=== PATIENT | female | born 1945 | race Caucasian/White ===

== ENCOUNTER 2016-07-26 19:01 | Emergency (ER) | payer MEDICARE ==
[~2016-07-26] VITALS: Ht 165.1 cm; Wt 93.3 kg
[2016-07-26 19:08] VITALS: BP 131/72
[2016-07-26] MEDS ORDERED: DEXAMETHASONE 4 MG TABLET ONE (20:27)
[2016-07-26] MEDS ORDERED: DEXAMETHASONE 4 MG TABLET PO ONE (20:30)
[2016-07-26] MEDS ORDERED: LEVO50TA PO (20:32)
== END 2016-07-26 20:42 | disposition home or self-care (01) ==
LOC: ED 20:36
DX: M75.52 Bursitis of left shoulder (principal); E03.9 Hypothyroidism, unspecified
CPT/HCPCS: 72050; 93005; 99284

== ENCOUNTER 2016-11-15 17:39 | Emergency (ER) | payer MEDICARE ==
[~2016-11-15] VITALS: Ht 165.1 cm; Wt 91.5 kg
[~2016-11-15 17:39] MED LIST: LEVO50TA PO
[2016-11-15 17:40] VITALS: BP 141/73
== END 2016-11-15 19:33 | disposition home or self-care (01) ==
LOC: ED 18:20
DX: S06.0X0A Concussion without loss of consciousness, initial encounter (principal); M25.552 Pain in left hip; M25.522 Pain in left elbow; E03.9 Hypothyroidism, unspecified; W10.9XXA Fall (on) (from) unspecified stairs and steps, initial encounter; Y93.89 Activity, other specified; Y92.009 Unspecified place in unspecified non-institutional (private) residence as the place of occurrence of the external cause; Y99.9 Unspecified external cause status
CPT/HCPCS: 70450; 99284

== ENCOUNTER → 2016-12-10 | Outpatient (CLI) | payer MEDICARE | END | disposition home or self-care (01) | LOC: CFH 12:49 | PROVIDERS: ATTEND Nurse Practitioner Family | DX: M25.552 Pain in left hip (principal); M25.522 Pain in left elbow; M85.852 Other specified disorders of bone density and structure, left thigh; M79.672 Pain in left foot ==

== ENCOUNTER → 2017-01-21 | Outpatient (CLI) | payer MEDICARE | END | disposition home or self-care (01) | LOC: CFH 13:00 | PROVIDERS: ATTEND Internal Medicine | DX: G31.89 Other specified degenerative diseases of nervous system (principal); E89.41 Symptomatic postprocedural ovarian failure | CPT/HCPCS: 70551 ==

== ENCOUNTER → 2017-05-19 | Outpatient (CLI) | payer MEDICARE | END | disposition home or self-care (01) | LOC: CVU 07:25 | PROVIDERS: ATTEND Internal Medicine | DX: R01.1 Cardiac murmur, unspecified (principal); R00.2 Palpitations; I51.7 Cardiomegaly | CPT/HCPCS: 93306 ==